=== PATIENT | female | born 1970 | race American Indian/Alaskan Native ===

== ENCOUNTER 2020-08-26 17:33 | Emergency (ER) | payer MEDICAID ==
[2020-08-26 17:43] VITALS: BP 153/101
== END 2020-08-27 00:23 | disposition left against medical advice (07) ==
LOC: ED 17:33
DX: J44.9 Chronic obstructive pulmonary disease, unspecified (principal); Z53.21 Procedure and treatment not carried out due to patient leaving prior to being seen by health care provider